=== PATIENT | male | born 1995 ===

== ENCOUNTER 2017-03-05 23:27 | Emergency (ER) | payer SELFPAY ==
[2017-03-05 23:40] VITALS: BP 128/74; PULSE 109; RESP 18; TEMP 98.6; O2SAT 98
--- NOTE | 2017-03-05 23:58 | ED PDOC ---
HPI: Allergic Reaction Time Seen by Provider: 03/05/17 23:40 Chief Complaint (Nursing): Allergic Reaction Chief Complaint (Provider): Allergic reaction History Per: Patient Additional Complaint(s): Pt is a 22 yo male,PMH of asthma, presents to ED for evaluation of allergic reaction - pt ate food containing peanuts, pt has hx of peanut allergy. Pt developed itching, swelling to eyes, red hives and wheezing. Pt took Benadryl approx 30 minutes ago. Past Medical History Reviewed: Nursing Documentation, Vital Signs Vital Signs: Last Vital Signs Temp 98.6 F 03/05/17 23:38 Pulse 109 H 03/05/17 23:38 Resp 18 03/05/17 23:38 BP 128/74 03/05/17 23:38 Pulse Ox 98 03/05/17 23:38 - Medical History PMH: Asthma - Surgical History Surgical History: No Surg Hx - Family History Family History: States: No Known Family Hx - Living Arrangements Living Arrangements: With Family - Social History Current smoker - smoking cessation education provided: No Alcohol: Social Drugs: Denies - Home Medications Home Medications: Ambulatory Orders Medication Instructions Recorded DiphenhydrAMINE [Benadryl] 50 mg PO Q4 PRN #30 cap 03/06/17 Famotidine [Pepcid] 20 mg PO DAILY #20 tab 03/06/17 Methylprednisolone [Medrol Dose 4 mg PO DAILY #21 mg 03/06/17 Pack (21 tabs)] - Allergies Allergies/Adverse Reactions: Allergies Allergy/AdvReac Type Severity Reaction Status Date / Time avocado Allergy ANAPHYLAXIS Verified 03/05/17 23:42 peanut Allergy ANAPHYLAXIS Verified 03/05/17 23:42 sesame seed Allergy ANAPHYLAXIS Verified 03/05/17 23:42 Review of Systems ROS Statement: Except As Marked, All Systems Reviewed And Found Negative Eyes: Positive for: Eyelid Inflammation Skin: Positive for: Rash Physical Exam - Reviewed Nursing Documentation Reviewed: Yes Vital Signs Reviewed: Yes - Physical Exam Appears: Positive for: Well, Non-toxic, No Acute Distress Head Exam: Positive for: ATRAUMATIC, NORMAL INSPECTION, NORMOCEPHALIC Skin: Positive for: Normal Color, Warm, Rash (erythematous maculopapular rash noted to forehead and upper extremities) Eye Exam: Positive for: EOMI, PERRL, Other (periorbital edema noted) ENT: Positive for: Normal ENT Inspection. Negative for: Pharyngeal Erythema, Tonsillar Exudate, Tonsillar Swelling Neck: Positive for: Normal, Painless ROM Cardiovascular/Chest: Positive for: Regular Rate, Rhythm Respiratory: Positive for: Wheezing (b/l expiratory wheezing) Gastrointestinal/Abdominal: Positive for: Normal Exam, Bowel Sounds, Soft Back: Positive for: Normal Inspection Extremity: Positive for: Normal ROM Neurologic/Psych: Positive for: Alert, Oriented - ECG O2 Sat by Pulse Oximetry: 98 - Progress ED Course And Treament: Pt placed on school bus monitor, vitals remain stable. see nursing notes. IV access established and treatment initiated with Solumedrol 125 mg and 20 mg Pepcid PO. On first re-eval, pt greatly improved. Lungs CTA bilaterally with full resolution of wheezing. POX 100% on monitor. On second re-eval, 1.5 hours after initial presentation, rash and edema fully resolved. Vitals stable and Pt reports feeling well, asking to go home. Pt continued to be monitored in ED, discharge 2.5 hours after initial presentation. given Medrol dose pack, Benadryl and Pepcid to go home with advised to return to ED if at anytime condition worsens Disposition - Clinical Impression Clinical Impression: Allergic reaction, Urticaria - Patient ED Disposition Is Patient to be Admitted: No - Disposition Disposition: Routine/Home Disposition Time: 01:49 Condition: STABLE Prescriptions: DiphenhydrAMINE [Benadryl] 50 mg PO Q4 PRN #30 cap PRN Reason: Rash Famotidine [Pepcid] 20 mg PO DAILY #20 tab Methylprednisolone [Medrol Dose Pack (21 tabs)] 4 mg PO DAILY #21 mg Instructions: Urticaria (ED), General Allergic Reaction (ED) Forms: [facility] ([facility])
[2017-03-06] MEDS ORDERED: Albuterol-Ipratrop 3 mg / 0.5 (3 ml) UD INH STA (00:11)
[2017-03-06] MEDS ORDERED: Albuterol-Ipratrop 3 mg / 0.5 (3 ml) UD ONE (00:13)
== END 2017-03-06 01:47 | disposition home or self-care (01) ==
LOC: H.ER 23:27
DX: L50.0 Allergic urticaria (principal); Z91.010 Allergy to peanuts; J45.909 Unspecified asthma, uncomplicated
CPT/HCPCS: 96374; 96375; 99282; J2405; J2930